=== PATIENT | female | born 1995 | race Two or more races ===

== ENCOUNTER 2020-03-09 13:58 | Emergency (ER) | payer OTHER ==
[~2020-03-09] VITALS: Ht 165.1 cm; Wt 83.0 kg
[2020-03-09] MEDS ORDERED: PRENA1 TRUE CO1 EACH PO (14:07)
== END 2020-03-09 17:22 | disposition home or self-care (01) ==
LOC: ER 13:58
DX: O20.8 Other hemorrhage in early pregnancy (principal); Z3A.01 Less than 8 weeks gestation of pregnancy; Z03.818 Encounter for observation for suspected exposure to other biological agents ruled out

== ENCOUNTER 2020-06-05 14:57 | Emergency (ER) | payer OTHER ==
[~2020-06-05] VITALS: Ht 165.1 cm; Wt 87.1 kg
[~2020-06-05 14:57] MED LIST: PRENA1 TRUE CO1 EACH PO
== END 2020-06-05 18:53 | disposition home or self-care (01) ==
LOC: ER 14:57
DX: O20.0 Threatened abortion (principal)

== ENCOUNTER 2020-07-08 05:58 | Emergency (ER) | payer OTHER ==
[~2020-07-08] VITALS: Ht 165.1 cm; Wt 83.5 kg
== END 2020-07-08 13:07 | disposition home or self-care (01) ==
LOC: ER 05:58
DX: O26.891 Other specified pregnancy related conditions, first trimester (principal); K59.09 Other constipation; Z3A.10 10 weeks gestation of pregnancy

== ENCOUNTER → 2020-07-18 | Outpatient (CLI) | payer OTHER | END | disposition home or self-care (01) | LOC: PRENATAL 09:30 | PROVIDERS: ATTEND Obstetrics & Gynecology Maternal & Fetal Medicine | DX: Z36.89 Encounter for other specified antenatal screening (principal); O36.80X1 Pregnancy with inconclusive fetal viability, fetus 1; Z3A.11 11 weeks gestation of pregnancy ==

== ENCOUNTER → 2020-09-19 | Outpatient (CLI) | payer OTHER | END | disposition home or self-care (01) | LOC: PRENATAL 10:00 | PROVIDERS: ATTEND Obstetrics & Gynecology Maternal & Fetal Medicine | DX: O35.0XX1 Maternal care for (suspected) central nervous system malformation in fetus, fetus 1 (principal); O35.3XX1 Maternal care for (suspected) damage to fetus from viral disease in mother, fetus 1; O98.512 Other viral diseases complicating pregnancy, second trimester; Z36.89 Encounter for other specified antenatal screening; Z3A.20 20 weeks gestation of pregnancy ==

== ENCOUNTER → 2020-11-27 | Outpatient (CLI) | payer OTHER ==
[~2020-11-27] MED LIST changes: +COLACE100 MG PO; +GAS RELIEF125 MG PO; +IBU800 MG PO; +NIFE60TA3 PO
== END | disposition home or self-care (01) ==
LOC: PRENATAL 08:55
PROVIDERS: ATTEND Obstetrics & Gynecology Maternal & Fetal Medicine
DX: O26.843 Uterine size-date discrepancy, third trimester (principal); Z36.89 Encounter for other specified antenatal screening; Z3A.29 29 weeks gestation of pregnancy

== ENCOUNTER → 2020-12-25 03:38 | Outpatient (CLI) | payer OTHER | END | disposition still patient (30) | LOC: NST 03:38 | PROVIDERS: ATTEND Student in an Organized Health Care Education/Training Program | DX: Z34.03 Encounter for supervision of normal first pregnancy, third trimester (principal) ==

== ENCOUNTER 2020-12-25 03:50 | Inpatient (IN) | payer OTHER ==
[~2020-12-25] VITALS: Ht 165.1 cm; Wt 1.8 kg
[~2020-12-25 03:50] MED LIST changes: -COLACE100 MG PO; -GAS RELIEF125 MG PO; -IBU800 MG PO; -NIFE60TA3 PO
[2021-01-01] MEDS ORDERED: COLACE100 MG PO (16:34)
[2021-01-01] MEDS ORDERED: NIFE60TA3 PO (16:34)
[2021-01-01] MEDS ORDERED: IBU800 MG PO (16:34)
[2021-01-01] MEDS ORDERED: GAS RELIEF125 MG PO (16:35)
== END 2021-01-01 18:12 | disposition home or self-care (01) | DRG 787 ==
LOC: OBS/DEL 03:50 → LDR 15:59 → SURG-SUITE 12-27 15:48
PROVIDERS: ADMIT Student in an Organized Health Care Education/Training Program; ATTEND Student in an Organized Health Care Education/Training Program
PROC: 10D00Z1 Extraction of Products of Conception, Low, Open Approach (ICD-10-PCS; principal; 2020-12-25)
PROC: 4A1HXFZ Monitoring of Products of Conception, Cardiac Rhythm, External Approach (ICD-10-PCS; 2020-12-25)
PROC: BY4FZZZ Ultrasonography of Third Trimester, Single Fetus (ICD-10-PCS; 2020-12-26)
DX: O14.14 Severe pre-eclampsia complicating childbirth (principal); O41.03X0 Oligohydramnios, third trimester, not applicable or unspecified; O36.5930 Maternal care for other known or suspected poor fetal growth, third trimester, not applicable or unspecified; Z37.0 Single live birth; Z3A.34 34 weeks gestation of pregnancy

== ENCOUNTER 2021-01-01 09:35 | Outpatient (CLI) | payer OTHER ==
[2021-01-01] MEDS ORDERED: NIFE60TA3 PO (16:34)
[2021-01-01] MEDS ORDERED: COLACE100 MG PO (16:34)
[2021-01-01] MEDS ORDERED: IBU800 MG PO (16:34)
[2021-01-01] MEDS ORDERED: GAS RELIEF125 MG PO (16:35)
== END 2021-01-01 09:40 | disposition home or self-care (01) ==
LOC: LAB 09:35
PROVIDERS: ATTEND Pediatrics Neonatal-Perinatal Medicine
DX: Z03.818 Encounter for observation for suspected exposure to other biological agents ruled out (principal)

== ENCOUNTER 2021-01-07 12:23 | Emergency (ER) | payer OTHER ==
[~2021-01-07] VITALS: Ht 165.1 cm; Wt 78.0 kg
[~2021-01-07 12:23] MED LIST changes: +COLACE100 MG PO; +GAS RELIEF125 MG PO; +IBU800 MG PO; +NIFE60TA3 PO
== END 2021-01-07 16:58 | disposition home or self-care (01) ==
LOC: ER 12:23
DX: O86.01 Infection of obstetric surgical wound, superficial incisional site (principal)

== ENCOUNTER 2021-10-02 19:02 | Emergency (ER) | payer OTHER ==
[~2021-10-02] VITALS: Ht 165.1 cm; Wt 87.1 kg
== END 2021-10-02 22:22 | disposition home or self-care (01) ==
LOC: ER 19:02
DX: O26.891 Other specified pregnancy related conditions, first trimester (principal); K59.00 Constipation, unspecified; R11.10 Vomiting, unspecified; I10 Essential (primary) hypertension; Z3A.01 Less than 8 weeks gestation of pregnancy

== ENCOUNTER 2021-11-19 09:22 | Outpatient (CLI) | payer OTHER | END 2021-11-19 10:35 | disposition home or self-care (01) | LOC: PRENATAL 09:22 | PROVIDERS: ATTEND Obstetrics & Gynecology Maternal & Fetal Medicine | DX: O36.80X0 Pregnancy with inconclusive fetal viability, not applicable or unspecified (principal); O34.219 Maternal care for unspecified type scar from previous cesarean delivery; O14.90 Unspecified pre-eclampsia, unspecified trimester; O09.219 Supervision of pregnancy with history of pre-term labor, unspecified trimester; Z36.0 Encounter for antenatal screening for chromosomal anomalies; Z3A.14 14 weeks gestation of pregnancy ==

== ENCOUNTER 2021-12-31 09:35 | Outpatient (CLI) | payer OTHER | END 2021-12-31 11:35 | disposition home or self-care (01) | LOC: PRENATAL 09:35 | PROVIDERS: ATTEND Obstetrics & Gynecology Maternal & Fetal Medicine | DX: O35.0XX0 Maternal care for (suspected) central nervous system malformation in fetus, not applicable or unspecified (principal); O14.90 Unspecified pre-eclampsia, unspecified trimester; O34.219 Maternal care for unspecified type scar from previous cesarean delivery; O09.211 Supervision of pregnancy with history of pre-term labor, first trimester; Z3A.28 28 weeks gestation of pregnancy; O35.3XX0 Maternal care for (suspected) damage to fetus from viral disease in mother, not applicable or unspecified; Z3A.20 20 weeks gestation of pregnancy ==

== ENCOUNTER 2022-03-25 09:46 | Outpatient (CLI) | payer OTHER | END 2022-03-25 12:54 | disposition home or self-care (01) | LOC: PRENATAL 09:46 | PROVIDERS: ATTEND Obstetrics & Gynecology Maternal & Fetal Medicine | DX: O34.219 Maternal care for unspecified type scar from previous cesarean delivery (principal); O14.90 Unspecified pre-eclampsia, unspecified trimester; O09.219 Supervision of pregnancy with history of pre-term labor, unspecified trimester; O26.849 Uterine size-date discrepancy, unspecified trimester; O36.8199 Decreased fetal movements, unspecified trimester, other fetus; Z3A.32 32 weeks gestation of pregnancy ==

== ENCOUNTER 2022-03-31 05:35 | Inpatient (IN) | payer OTHER ==
[~2022-03-31] VITALS: Ht 165.1 cm; Wt 1.8 kg
[~2022-03-31 05:35] MED LIST changes: +CHILDREN'S ASPI81 MG PO; +FOLIC ACID0.8 M1 PO; +PRENATAL TABLE1 EAC1 PO
== END 2022-04-04 18:09 | disposition home or self-care (01) | DRG 788 ==
LOC: OBS/DEL 05:35 → OB/GYN 09:14 → LDR 09:14 → OB/GYN 13:24
PROVIDERS: ADMIT Obstetrics & Gynecology; ATTEND Obstetrics & Gynecology
PROC: 4A1HXCZ Monitoring of Products of Conception, Cardiac Rate, External Approach (ICD-10-PCS; 2022-03-31)
PROC: 10D00Z1 Extraction of Products of Conception, Low, Open Approach (ICD-10-PCS; principal; 2022-03-31 10:00)
DX: O14.14 Severe pre-eclampsia complicating childbirth (principal); O60.14X0 Preterm labor third trimester with preterm delivery third trimester, not applicable or unspecified; O34.211 Maternal care for low transverse scar from previous cesarean delivery; Z3A.33 33 weeks gestation of pregnancy; Z37.0 Single live birth; Z20.822 Contact with and (suspected) exposure to COVID-19